=== PATIENT | female | born 1955 | race Caucasian/White ===

== ENCOUNTER → 2017-02-27 | Outpatient (CLI) | payer BC ==
[~2017-02-27] MED LIST: ALEVE; DIOVAN PO; FLEXERIL10 MG PO; KCL PO; LISINOPRIL PO; NAPROSYN500 MG PO; ORACEA; VYTORIN PO
--- NOTE | ~2017-02-27 | MR165 ---
[facility] A Service of [facility] & [facility] RADIOLOGY TEXT RESULTS PATIENT: DELMA MCARTHUR LOCATION: [facility] : 53 UNIT #: [id number] AGE: [address]: Kailey Rand MD SEX: F ORDER DR: [id number] [facility] [address] [place], [place] [address] [id number] O MR#: [id number] #: [id number] NAME: DELMA MCARTHUR : 1955 SEX: F STUDY DATE/TIME: 02/27/2017 15:16 UNIT: [facility] ROOM: STUDY DESCRIPTION: MR Shoulder Wo Contrast Rt Attending Physician: Kailey Rand M.D. Referring Physician: Kailey Rand M.D. Ordering Physician: Kailey Rand M.D. Primary Care Physician: Patricia Anderson A.P.R.N. MRI CENTER REPORT This report is preliminary unless electronic signature is present. EXAM MRI of the right shoulder without contrast. HISTORY 61-year-old female right shoulder pain for 2 years. No known injury. Arthritis right shoulder. COMPARISON None. FINDINGS Multiplanar, multiecho imaging was performed of the right shoulder utilizing a high field magnet dedicated protocol. Mild superior subluxation of the humeral head secondary to a full-thickness rotator cuff tear. AC joint demonstrates minimal capsular hypertrophy. Marrow signal within the proximal humerus and glenoid unremarkable except for a small amount of enthesopathic cystic change at the greater tuberosity. There is a small glenohumeral joint effusion with fluid extension into the subacromial subdeltoid bursa. There is a full-thickness tear of the supraspinatus tendon with apparent extension of the tear through the rotator interval to involve the subscapularis tendon as well. The tear is estimated at least 4 cm AP dimension and just over 2 cm medial to lateral dimension. There is retraction of the supraspinatus tendon back to the medial third of the glenoid or medial third of the humeral head. Mild atrophy of the supraspinatus, subscapularis and infraspinatus muscles. No muscle edema. The rotator cuff tear may extend posteriorly to involve at least a portion of the infraspinatus tendon as well. The teres minor tendon appears intact. Superior labrum biceps anchor appear intact. The long tendon of the biceps is not seen within the proximal bicipital groove and is consistent STS. [facility] A Service of [facility] RADIOLOGY TEXT RESULTS PATIENT: DELMA MCARTHUR LOCATION: [facility] : 53 UNIT #: [id number] AGE: [address]: Kailey Rand MD SEX: F ORDER DR: with a complete tear. Anterior and posterior labrum unremarkable. There is suspected areas of full-thickness cartilage loss off the inferior humeral head measuring close to a centimeter. The deltoid extraarticular soft tissues unremarkable. IMPRESSION 1. Large full-thickness rotator cuff tear which is felt to represent a full-thickness complete tear of the supraspinatus tendon as well as involvement in the anterior infraspinatus tendon and extension to involve the subscapularis tendon as well. The tear is estimated over 4 cm AP dimension and over 2 cm medial to lateral dimension. There is mild atrophy of the supraspinatus, subscapularis and infraspinatus musculature. 2. Mild AC joint arthropathy. 3. Complete tear of the long tendon of the biceps. 4. 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 Dictated by... Fanny Johnston M.D. THIS IS AN ELECTRONICALLY VERIFIED REPORT Fanny Johnston M.D. at 03/01/2017 7:17 AM Naeem TD: 02/28/2017 17:45 JOB #: [id number] MRI CENTER REPORT Page 1 of 1 COPY
== END | disposition home or self-care (01) ==
LOC: CMRI 02-17 15:00
DX: M25.511 Pain in right shoulder (principal); S46.211A Strain of muscle, fascia and tendon of other parts of biceps, right arm, initial encounter; M75.101 Unspecified rotator cuff tear or rupture of right shoulder, not specified as traumatic; M12.811 Other specific arthropathies, not elsewhere classified, right shoulder
CPT/HCPCS: 73221